=== PATIENT | male | born 1995 | race Caucasian/White ===

== ENCOUNTER 2019-03-23 19:12 | Emergency (ER) | payer OTHER ==
[~2019-03-23] VITALS: Ht 175.3 cm; Wt 63.6 kg
[2019-03-23 19:37] VITALS: BP 132/66
== END 2019-03-23 21:10 | disposition home or self-care (01) ==
LOC: ER 19:14 → EDBD 19:14 → ER 21:10
DX: R10.31 Right lower quadrant pain (principal); R19.7 Diarrhea, unspecified
CPT/HCPCS: 99281